=== PATIENT | female | born 1955 | race Caucasian/White ===

== ENCOUNTER 2024-06-15 10:53 | Emergency (ER) | payer OTHER, SELFPAY ==
[2024-06-15 10:55] VITALS: BP 122/85
[2024-06-15 11:02] VITALS: BMI 21.5
[2024-06-15 11:22] LABS: % Basophils 0.7 % (0-2); % Eosinophils 1.7 % (0-6); % Immature Granulocytes 0.2 % (0-0.5); % Lymphocytes 34.5 % (20.5-51.1); % Monocytes 14.8 % (1.7-9.3); % Neutrophils 48.1 % (42.2-75.2); Absolute Eosinophils 0.1 10^3/uL (0-0.7); Absolute Lymphocytes 1.4 10^3/uL (1.2-3.4); Absolute Monocytes 0.6 10^3/uL (0.1-0.6); Hematocrit 37.7 % (37.0-47.0); Mean Corp Hgb Conc. 34.5 g/dL (33.0-37.0); Mean Corpuscular Hgb 30.2 pg (27.0-31.0); Mean Corpuscular Volume 87.7 fL (81.0-99.0); Mean Platelet Volume 10.3 fL (7.4-10.4); Nucleated Red Blood Cells % 0 %; Platelet Count 280 10^3/uL (130-400); Red Cell Dist. Width 12.9 % (11.5-14.5); White Blood Cell Count 4.1 10^3/uL (4.8-10.8)
[2024-06-15 11:31] LABS: ALT (SGPT) 17 U/L (0-35); AST (SGOT) 28 U/L (14-36); Albumin 3.5 g/dl (3.5-5.0); Alkaline Phosphatase 109 U/L (38-126); Blood Urea Nitrogen 20 mg/dl (7-17); Calcium 8.5 mg/dl (8.4-10.2); Carbon Dioxide 25 mmol/L (22-30); Chloride 109 mmol/L (98-107); Estimated Creatinine Clearance 45 ml/min; Glucose 94 mg/dl (70-99); Potassium 3.6 mmol/L (3.5-5.1); Sodium 142 mmol/L (135-145); Total Bilirubin 0.3 mg/dl (0.2-1.3); Total Protein 6.3 g/dl (6.3-8.2); eGFR > 60.00
--- NOTE | 2024-06-15 11:56 | ED.GENMED ---
History of Present Illness
General
Chief Complaint: Fainting/Passed Out
Source: patient
Exam Limitations: none
Time Seen by Provider: 06/15/24 11:55
Nursing documentation reviewed up to this point in time: agreed with
History of Present Illness
History of Present Illness:
68-year-old female history HTN, HLD, hypothyroidism, presents stating she, her daughter and her three granddaughters who all live in same home have had URI's, intermittent fevers, coughs for past week. For past 3 days pt states she's felt 'sluggish,
lightheaded off and on, cough, fever.' Never took temperature but last night broke out in a bed soaking sweat.
Went to Urgent care today, 'I rushed in and was standing at the desk...next thing I knew I was picking myself up off the floor.' Fall was witnessed, she was out for mere seconds. She felt lightheaded prior to fall. She feels much better now, 'a
little fatigued.'
Pt denies H/A, CP, SOB, Abdominal pain, n/v/d/c. She ate only 2 wheat thins and drank a cup of water this a.m.
Past History
Past History
ED Past Medical History: HTN, Hypercholesterolemia and Hypothyroidism
ED Past Surgical History: None
Social History
Tobacco: Non-smoker
Alcohol: Occasional
Personal: Single
Living: with family
Employment: Employed
Review of Systems
Review of Systems
Allergies reviewed?: Yes
All Other Systems: ROS reviewed and negative except as documented in HPI and ROS
Constitutional: Reports fever, fatigue and chills
EENT: Denies sore throat or runny nose
Respiratory: Reports cough; Denies trouble breathing
Cardiac: Reports diaphoresis and syncope; Denies chest pain or palpitations
ABD/GI: Denies abdominal pain, nausea, vomiting, diarrhea, constipated or anorexia
: Denies dysuria, difficulty voiding or urgency
Musculoskeletal: Reports no symptoms
Skin: Reports no symptoms
Neurological: Reports no symptoms
Phy Exam
Physical Exam
Physical Exam:
GENERAL: No acute distress. A&Ox3.
CONSTITUTIONAL: Afebrile.
EYES: PERRL, conjunctivae normal
Neck: Supple
ENMT: moist mucus membranes, Pharynx nl
RESPIRATORY: Regular respirations, nonlabored, lungs clear.
CARDIOVASCULAR: Regular rate and rhythm, no murmurs, no rubs.
GI: Soft, nontender, normal BS
MUSCULOSKELETAL: Moves with ease. Well perfused.
SKIN: Warm, dry, pink
PSYCH: Normal mood and affect. Well kept, interactive and appropriate
NEUROLOGIC: Awake, alert and oriented. No focal neurological deficits
Course
Orders/Labs/Results
Orders:
Orders
06/15/24 11:01
Electrocardiogram (*1) Urgent
Reason for Study: Fatigue / Weakness
06/15/24 11:02
EKG- Treatment ONCE
06/15/24 11:08
CBC/With Diff [Complete Blood Count/With Diff] Urgent
Comprehensive Metabolic Panel Urgent
TSH Reflex To Free T4 Urgent
Comment: ADD ON
06/15/24 11:15
COVID-19 Antigen Urgent
Source: Nasal Swab
Influenza A+B Rapid Molecular Urgent
CHRIS Source: Nasal Swab
Specimen Description:
06/15/24 12:15
Add On- LAB Urgent
Tests Added?: TSH refelx to T4
Abnormal Lab Results
06/15/24 06/15/24
11:08 11:15
WBC 4.1 L 10^3/uL
(4.8-10.8)
Monocytes % 14.8 H %
(1.7-9.3)
Chloride 109 H mmol/L
(98-107)
BUN 20 H mg/dl
(7-17)
SARS-CoV-2 Antigen Positive A
(Negative)
06/15/24 11:08
06/15/24 11:08
Vital Signs
Initial and Last Documented VS:
Initial Vital Signs
Temp Pulse Resp BP Pulse Ox
98.7 F 70 18 122/85 96
06/15/24 10:55 06/15/24 10:55 06/15/24 10:55 06/15/24 10:55 06/15/24 10:55
Last Documented Vital Signs
Temp Pulse Resp BP Pulse Ox
98.7 F 70 19 111/75 98
06/15/24 10:55 06/15/24 12:30 06/15/24 12:30 06/15/24 12:00 06/15/24 12:30
MDM/Problems Addressed
Differential Diagnosis Includes:
dehydration, hypoglycemia, viral syndrome, Covid
MDM/Problems Addressed:
68-year-old female history HTN, HLD, hypothyroidism, presents stating she, her daughter and her three granddaughters who all live in same home have had URI's, intermittent fevers, coughs for past week. For past 3 days pt states she's felt 'sluggish,
lightheaded off and on, cough, fever.' Never took temperature but last night broke out in a bed soaking sweat.
Went to Urgent care today, 'I rushed in and was standing at the desk...next thing I knew I was picking myself up off the floor.' Fall was witnessed, she was out for mere seconds. She felt lightheaded prior to fall. She feels much better now, 'a
little fatigued.'
Pt denies H/A, CP, SOB, Abdominal pain, n/v/d/c. She ate only 2 wheat thins and drank a cup of water this a.m.
Afebrile, NAD
EKG NSR
12:15 p.m.
No cough noted during stay. Afebrile. Totally non toxic appearing.
CBC normal
CMP shows a BUN of 20, otherwise normal, patient given a large glass of prince sal and informed she is mildly dehydrated
Covid positive
Flu neg
Pt informed. She is alert, well appearing.
Ambulated out with normal gait at discharge
Chronic conditions affecting care: HTN
*EKG
EKG Intrepretation Date: 06/15/24
Interpretation: abnormal
Rate: normal
Rhythm: sinus
[place]: normal axis
Interval: normal interval
QRS Pattern: normal QRS
Ischemia: no ischemia
*Critical Care Note
Total Time (30-74mins, 75-104mins- exclusive of procedures): Not Applicable
ED Attending Note
-
Portions of this chart may have been created with voice recognition software.� Occasional wrong word or��sound alike� substitutions may have occurred due to the inherent limitations of voice recognition software.
Discharge Plan
Departure
Patient Disposition: Home (Routine Discharge)
Date of Disposition: 06/15/24
Time of Disposition: 12:26
Patient with high blood pressure during this ER visit?: No
Condition: Good
Discharge Problem:
Mild dehydration, Episode of syncope, COVID-19
Instructions: Dehydration, Adult ED, COVID-19 in adults - Discharge instructions, Coronavirus Home Quarantine
Referrals:
Kamari Duarte, [Family Provider] - As needed
Activity Restrictions/Additional Instructions:
As we discussed, you are mildly dehydrated.
Drink at least 8 eight oz glasses of water/fluid daily
Interventions
Interventions:
*Risk Screen - Suicide Last Done: 06/15/24 12:29
*General Assessment Last Done: 06/15/24 11:03
*Neglect/Abuse Screening Last Done: 06/15/24 12:29
ED- Fall Risk Assessment Last Done: 06/15/24 12:29
*ED COVID-19 Vaccine History Last Done: 06/15/24 11:03
*Nursing Disposition Last Done: 06/15/24 13:14
ED- Cardiac Assessment Last Done: 06/15/24 12:29
ED- Neurological Assessment Last Done: 06/15/24 12:29
Discharge Date and Time
Discharge Date/Time: 06/15/24 13:17
Print Language: INDONESIAN
[2024-06-15 11:59] LABS: COVID-19 Antigen Positive (Negative)
[2024-06-15 12:00] VITALS: BP 111/75
[2024-06-15 13:00] LABS: TSH Reflex To Free T4 2.39 uIU/ml (0.47-4.68)
== END 2024-06-15 13:17 | disposition home or self-care (01) ==
LOC: EMR 10:53
PROVIDERS: EMERGENCY PHYSICIAN Emergency Medicine; FAMILY PHYSICIAN Family Medicine
DX: R55 Syncope and collapse (principal); E86.0 Dehydration; U07.1 COVID-19; I10 Essential (primary) hypertension; E78.00 Pure hypercholesterolemia, unspecified; E03.9 Hypothyroidism, unspecified
CPT/HCPCS: 99283; 80053; 84443; 85025; 87502; 87811; 93005